=== PATIENT | male | born 1960 | race Caucasian/White ===

== ENCOUNTER 2018-05-31 22:35 | Emergency (ER) | payer BC ==
[2018-05-31 22:48] VITALS: TEMP 98
[2018-05-31] MEDS ORDERED: SODIUM CHLORIDE 0.9% FLUSH 10 ML SOL IV PRN (23:00)
[2018-05-31] MEDS ORDERED: KETOROLAC TROMETHAMINE 30 MG/ML SOL IV ONE (23:01)
[2018-05-31 23:24] LABS: BASOPHILS % (AUTO) 1 % (0-3); EOSINOPHILS % (AUTO) 3 % (0-9); HEMATOCRIT 44 % (39-53); HEMOGLOBIN 14.8 gm/dl (13.5-17.7); LYMPHOCYTES % (AUTO) 21.1 % (10-50); MEAN CORPUSCULAR VOLUME 97 fL (80-100); MONOCYTES % (AUTO) 9.3 % (0-12); NEUTROPHILS % (AUTO) 65.6 % (37-80)
[2018-05-31] MEDS ORDERED: KETOROLAC TROMETHAMINE 30 MG/ML SOL ONE (23:24)
[2018-05-31 23:26] LABS: APPEARANCE,URINE Clear; BILIRUBIN,URINE NEGATIVE (NEGATIVE); COLOR,URINE Yellow; GLUCOSE, URINE (UA) NEGATIVE (NEGATIVE); KETONES,URINE TRACE (NEGATIVE); LEUKOCYTE ESTERASE ,URINE NEGATIVE (NEGATIVE); NITRATE,URINE NEGATIVE (NEGATIVE); OCCULT BLOOD,URINE TRACE LYSED (NEG-TRACE); PH,URINE 5.5; UROBILINOGEN,URINE 0.2 (0.2-1.0 EU)
[2018-05-31 23:30] LABS: RBC,URINE 0-2 (0-3AV/HPF)
[2018-05-31 23:31] LABS: BACTERIA 1+ (< 1+); CRYSTALS NEGATIVE (0-3 AVE/HPF)
[2018-05-31 23:34] LABS: ALBUMIN 3.7 gm/dl (3.4-5.0); BILIRUBIN,TOTAL 0.3 mg/dl (0.2-1.0); CALCIUM 8.9 mg/dl (8.5-10.1); CARBON DIOXIDE 24.6 mEq/L (21-32); CREATININE 1.32 mg/dl (0.80-1.30); TOTAL PROTEIN 7.4 gm/dl (6.4-8.2)
[2018-06-01] MEDS ORDERED: TAMSULOSIN HYDROCHLORIDE 0.4 MG CAP PO PRN (00:13)
[2018-06-01] MEDS ORDERED: APAP/OXYCODONE 1 EACH TABLET PO ONE (00:13)
[2018-06-01] MEDS ORDERED: MAGNESIUM CITRATE SOL ONE (00:15)
[2018-06-01] MEDS ORDERED: MAGNESIUM CITRATE SOL PO PRN (00:18)
[2018-06-01] MEDS ORDERED: APAP/OXYCODONE 1 EACH TABLET ONE (00:19)
[2018-06-01] MEDS ORDERED: TAMSULOSIN HYDROCHLORIDE 0.4 MG CAP ONE (00:20)
[2018-06-01 00:49] VITALS: RESP 18
[2018-06-01 00:52] VITALS: BP 139/95; PULSE 76; O2SAT 95
== END 2018-06-01 00:45 | disposition home or self-care (01) ==
LOC: ED 22:35
DX: N23 Unspecified renal colic (principal); N20.1 Calculus of ureter
CPT/HCPCS: 74176; 80053; 81001; 85025; 96374; 99284; J1885; A9270-GY